=== PATIENT | male | born 1945 | race Caucasian/White ===

== ENCOUNTER 2019-04-14 10:35 | Emergency (ER) | payer MEDICARE ==
[~2019-04-14] VITALS: Ht 157.5 cm; Wt 104.5 kg
[2019-04-14 10:50] VITALS: Ht 157.5 cm; Wt 104.5 kg
[2019-04-14] MEDS ORDERED: LISINOPRIL (10:52)
[2019-04-14] MEDS ORDERED: PLAVIX75 MG PO (10:52)
[2019-04-14 11:41] LABS: HEMATOCRIT 46.6 % (42.0-54.0); HEMOGLOBIN 15.8 g/dL (13.5-17.5); LYMPHOCYTES 25.4 % (15-50); MCH 30.3 pg (26.0-34.0); MCHC 33.9 g/dL (31.0-37.0); MCV 89.4 fL (80.0-100.0); MEAN PLATELET VOLUME 9.7 fL (7.4-10.4); NEUTROPHILS 65.4 % (40-80); PLATELET COUNT 238 10x3/uL (130-400); RBC 5.21 10x6/uL (4.20-6.10); RDW 13.4 % (11.5-14.5); WBC 9.3 10x3/uL (4.8-10.8)
[2019-04-14 11:45] LABS: ALBUMIN 3.5 g/dL (3.4-5.0); ALKALINE PHOSPHATASE 81 U/L (46-116); ALT (SGPT) 38 U/L (10-68); CALC OSMOLALITY 277 mosm/kg (275-300); CARBON DIOXIDE 25.6 mmol/L (21.0-32.0); CHLORIDE - SERUM 103 mmol/L (98-107); CREATININE - SERUM 0.9 mg/dL (0.6-1.3); GLUCOSE 99 mg/dL (74-106); PROTEIN - SERUM 8.3 g/dL (6.4-8.2); SODIUM 139 mmol/L (136-145); UREA NITROGEN 13 mg/dL (7-18); eGFR NON AFRICAN AMERICAN 88 mL/min (90-120)
[2019-04-14 11:47] LABS: POTASSIUM - SERUM 4.3 mmol/L (3.5-5.1)
[2019-04-14 11:56] LABS: CREATINE KINASE 107 UL (21-232)
[2019-04-14 11:57] LABS: CKMB 1.1 U/L (0.0-3.6); TROPONIN-I < 0.017 ng/mL (0.000-0.060)
[2019-04-14] MEDS ORDERED: TOPROL XL50 MG PO (13:10)
[2019-04-14 13:23] VITALS: BP 131/71
--- NOTE | 2019-04-21 09:52 | CN ---
PATIENT NAME:JERAMY APONTE MEDICAL RECORD: [id number] : 43 LOCATION:[facility] ADMIT DATE: ACCOUNT: [id number] CONSULTING PHYSICIAN: KEAGAN BOOKER MD REFERRING PHYSICIAN: EDGARD EDWARDS MD DATE OF CONSULTATION: 04/14/2019 DIAGNOSES: 1. Angina. 2. Hypertension. 3. Tachycardia. HISTORY OF PRESENT ILLNESS: This is a gentleman who speaks little Turkish. For the past month, he has been having chest discomfort. It has been associated with his blood pressure and heart rate being up. He is not on any medications for this. He does not have a history of ischemic heart disease as best we can tell. His EKG is with no acute ST-T abnormalities. He is pain free at this time. PHYSICAL EXAMINATION: GENERAL APPEARANCE: Well-nourished, well-developed, appears stated age. Level of distress, comfortable. PSYCHIATRIC: Mental status, alert, normal affect. Orientation, oriented to time, place and person. EYES: Lids and conjunctiva, noninjected. No discharge, no pallor. ENT: Lips, teeth, gums, normal dentition. Oropharynx, no cyanosis, no pallor. NECK: Carotid arteries, bilateral normal upstroke, no bruits, no thrills. JUGULAR VEINS: No jugular venous pressure or distention. CERVICAL LYMPH NODES: Nontender, nonenlarged. THYROID: Not enlarged. Nontender. No nodules. LUNGS: Respiratory effort, unlabored. CHEST: Normal curvature. No thoracic deformity. No chest wall tenderness. Percussion, resonant. Auscultation, clear. No wheezes, no rales, no rhonchi. CARDIOVASCULAR: Precordial exam, nondisplaced. No heaves or pericardial thrills. Rate and rhythm, regular. Heart sounds, normal S1, normal S2. No S3, no gallop, no rub. Systolic murmur, not heard. Diastolic murmur, not heard. EXTREMITIES: No cyanosis, no edema. Peripheral pulses, full and equal in all extremities, except as noted. No bruits appreciated. ABDOMEN: Soft, nondistended. Normal aorta. No bruit. Nontender. No masses. Liver, nontender, no hepatomegaly. Spleen, nontender, no splenomegaly. MUSCULOSKELETAL: No joint tenderness. No joint swelling. No erythema. NEUROLOGICAL: Normal gait, normal strength, normal tone. SKIN: Warm and dry. OVERALL IMPRESSION: Chest pain of unknown etiology. We will start him on metoprolol ER 50 mg daily. Follow up as an outpatient. If he continues to have chest pain, we will risk stratify with stress testing with Cardiolite imaging. TRANSINT:[id number] Voice Confirmation ID: [id number] DOCUMENT ID: [id number] CONSULT REPORT [id number] JERAMY APONTE JEFFREY MD at 0952 CC: [id number] DICTATION DATE: 04/14/19 1145 JUNIOR BUYER: 04/14/19 1222 DEP ER 04/14/19 [facility] [address] [place] [address]
== END 2019-04-14 13:23 | disposition home or self-care (01) ==
LOC: D.ER 10:35
PROVIDERS: Emergency Medicine
DX: R07.9 Chest pain, unspecified (principal); I10 Essential (primary) hypertension